=== PATIENT | male | born 1965 | race American Indian/Alaskan Native ===

== ENCOUNTER 2017-11-30 18:28 | Emergency (ER) | payer OTHER ==
[~2017-11-30] VITALS: Ht 177.8 cm; Wt 81.7 kg
[~2017-11-30 18:28] MED LIST: NORCO 7.5-3251 EACH PO
[2017-12-01] MEDS ORDERED: POTASSIUM CHLO20 ME1 PO (02:52)
== END 2017-12-01 03:10 | disposition left against medical advice (07) ==
LOC: ED 18:28
PROC: 0T9B70Z Drainage of Bladder with Drainage Device, Via Natural or Artificial Opening (ICD-10-PCS; principal; 2017-11-30)
DX: F10.129 Alcohol abuse with intoxication, unspecified (principal); Y90.8 Blood alcohol level of 240 mg/100 ml or more
CPT/HCPCS: 51701; 80053; 81001; 83690; 85025; 96361; 96365; 96366; 99284; G0480; J2060; J3411; J3480; J7042; J7120